=== PATIENT | female | born 1965 | race Caucasian/White ===

== ENCOUNTER 2019-05-17 21:20 | Observation (INO) | payer OTHER, SELFPAY ==
[2019-05-17 21:21] VITALS: BP 123/83; PULSE 84; RESP 15; TEMP 37.1; O2SAT 100; BMI 18.6
--- NOTE | 2019-05-17 21:55 | CT_ITS ---
STUDY: CT ABDOMEN AND PELVIS WITH CONTRAST REASON FOR EXAM: Female, 53 years old. Upper abdominal pain and elevated white count. RADIATION DOSAGE (If Supplied By Facility): CTDIvol = ( 11.64 ) mGy, DLP = ( 309.50 ) mGycm TECHNIQUE: Transaxial images were obtained from the dome of the diaphragm to the symphysis pubis with oral contrast. 100 ml of IV Isovue 300 was administered. Sagittal and coronal images were reconstructed. Individualized dose optimization techniques were used for this CT. COMPARISON: CT abdomen and pelvis dated June 01, 2016. FINDINGS: There is bilateral basal dependent atelectasis. The visualized portions of the heart are within normal limits. Normal liver. Normal gallbladder and extrahepatic biliary system. Normal spleen. Normal pancreas. Normal bilateral adrenal glands. Normal right kidney. Normal left kidney. Normal visualized stomach. There is nonspecific thickening of the buenrostro of proximal small bowel which measure up to 11.3 mm in thickness. This appears new since the previous study and suggests possible sequela of small bowel infection and/or inflammation. Stool is visible throughout the colon with relative distention of the cecum compared to rest the colon. Maximum transverse dimension of the cecum is approximately 6.8 cm. There is nonspecific thickening of the buenrostro of the distal transverse colon that may be the result of nondistention but there is an abrupt transition at the mid transverse colon. There is a tubular, thick-walled appendix (>7mm), consistent with acute appendicitis. There appears to be an appendicolith at the base of the appendix. There is diffuse atherosclerotic calcification of the distal abdominal aorta, without a demonstrated aneurysm. There is venous distention of the inferior vena cava (IVC). Normal retroperitoneum. Normal urinary bladder. Normal visualized uterus. Normal abdominal wall. There is degenerative disc disease at L4-5. CT/Abdomen/Pelvis WITH Contrast IMPRESSION: CT findings are consistent with acute appendicitis. There is no evidence to suggest perforation or abscess currently. N.B. : The above information has been verbally conveyed by Penelope Greco MD to Dawna Coburn MD, on 05/18/2019 00:12:54 (ET). Electronically Signed: Penelope Greco MD at 0:15 EST , Service support ,
--- NOTE | 2019-05-17 21:55 | EKG12_ITS ---
Test Reason : ABDOMINAL PAIN Blood Pressure : / mmHG Vent. Rate : 069 BPM Atrial Rate : 069 BPM P-R Int : 116 ms QRS Dur : 082 ms QT Int : 426 ms P-R-T Axes : 069 079 074 degrees QTc Int : 456 ms Normal sinus rhythm with sinus arrhythmia Normal ECG Confirmed by FARHAD POWERS, CHAY ([id number]), editor & co founder ALONZO BOONE ([id number] on 05/18/2019 2:54:15 PM Referred By: TAWANNA Confirmed By:CHAY LLAMAS MD
[2019-05-17] MEDS: 0.9% Normal Saline 1,000 ML 125 ML IV (22:03)
[2019-05-17] MEDS: Ondansetron 4 MG/2 ML Vial IV (22:03)
[2019-05-17] MEDS: HYDROmorphone 1 MG/ML Syringe IV ×2 (22:03→23:40)
[2019-05-17 22:16] LABS: Absolute Lymphocyte Count 1.57 X10^3/uL (0.83-4.51); Absolute Neutrophil Count 13.8 X10^3/uL (2.0-7.7); Basophil# 0.05 X10^3/uL; Basophil% 0.3 % (0-1); Eosinophils% 0.6 % (0-5); Hematocrit 39.5 % (37-47); Hemoglobin 12.9 g/dL (12.0-15.0); Lymphocyte # 1.57 X10^3/ul (4.0); Lymphocyte % 9.6 % (19-41); Mean Corp Hgb Conc 32.7 g/dL (32-36); Mean Corpuscular Hgb 30.8 pg (27.0-32.0); Mean Corpuscular Volume 94.3 fL (81-99); Mean Platelet Vol. 9.9 fl (6.2-12.0); Monocyte# 0.74 X10^3/uL; Monocyte% 4.5 % (0-10); NRBC Flagged by Analyzer 0 % (0-5); Neutrophil # 13.79 X10^3/uL (2.7-7.7); Neutrophil % 84.6 % (47-70); Platelet Count 292 K/mm3 (150-450); RBC Distribution Width CV 13.5 % (11.6-14.6); RBC Distribution Width SD 46.5 fl (35.1-43.9); Red Blood Count 4.19 M/mm3 (4.2-5.4); White Blood Count 16.3 K/mm3 (4.4-11.0)
[2019-05-17 22:33] LABS: ALB/GLOB Ratio 1.2 RATIO (0.9-2.4); AST(SGOT) 15 U/L (15-37); Alanine Aminotransfer ALT/SGPT 16 U/L (13-56); Albumin, Serum 3.8 g/dL (3.2-5.0); Alkaline Phosphatase 100 U/L (45-117); Anion Gap 8 (5-15); BUN 18 mg/dL (7-18); BUN/Creat Ratio 23.2 RATIO (10-20); Chloride 106 mmol/L (98-107); Creatinine, Serum 0.78 mg/dL (0.55-1.02); EST Glomerular Filtration Rate 82 mL/min (>60); Est Glom Filt Rate - Afr Amer 100 mL/min (>60); Estimated Creatinine Clearance 66.89 ml/min; Globulin 3.1 g/dL (2.2-4.2); Glucose 120 mg/dL (74-106); Lipase 97 U/L (73-393); Protein, Total 6.9 g/dL (6.4-8.2); Sodium Level 138 mmol/L (136-145)
[2019-05-17 22:46] LABS: Internal QC Validated? YES +Cl - CLEAR BKGD; Pregnancy, Serum, hCG Quali. NEGATIVE Negative
[2019-05-17 23:03] VITALS: BP 112/77; PULSE 76; RESP 16
[2019-05-17 23:14] LABS: Bacteria 0 SEEN /hpf (None Seen); Mucous, Urine 0 SEEN /hpf (<or=2+)
[2019-05-17 23:15] LABS: Color, Urine Yellow (Yellow); Glucose, Dipstick Normal (Normal); Ketone-Dipstick 50 mg/dl (Negative); Leukocyte Esterase-Dipstick 25 /ul (Negative); Nitrite-Dipstick Negative (Negative); Occult Blood-Urine 10 /ul (Negative); Protein-Dipstick Negative (Negative); Urine Bilirubin Dipstick Negative (Negative); Urine Clarity Clear (Clear); Urine Urobilinogen Normal (Normal)
[2019-05-17 23:20] LABS: Red Blood Cells-Urine 0-5 SEEN /hpf (0-5); Squamous Epithelial Cells - UA 0-5 SEEN /hpf (5-10); White Blood Cells 0-5 SEEN /hpf (0-5)
[2019-05-18] VITALS (12 sets, daily range): BP systolic 84–124; BP diastolic 49–81; PULSE 68–97; RESP 15–18; TEMP 36.6–37.2; O2SAT 94–100; BMI 18.6; BMI 18.8
--- NOTE | 2019-05-18 00:06 | ED.VISSUMM ---
- ER Visit Summary Date of Service: 05/18/19 Chief Complaint: [Abdominal pain] History of Present Illness: The patient is a 53 F [presents to the emergency department with complaint of abdominal pain that started 4 5 hours ago. Patient states that she just got back from [place]. Patient states that she had a sensation like she needed to may be just have a bowel movement and eventually she did however her discomfort and not resolve. Patient complains of pain in the upper and lower abdomen somewhat diffusely. She describes it as cramping and now rates it as severe. Patient rates it as an 8 out of 10. She is had nausea and vomiting x2. She denies any diarrhea. Patient had a colonoscopy on April 16 that was normal. Patient has no medical history. She has had no prior surgical history. Denies urinary symptoms.] Physical Examination: [HEENT-PERRLA, EOMI. Cranial nerves II through XII grossly intact. TMs clear. Mucous membranes moist. No adenopathy. Cardiovascular-regular rate and rhythm without murmur or ectopy Lungs-clear to auscultation, chest wall stable without crepitus or subcu emphysema Abdomen-normoactive bowel sounds, soft. Patient has tenderness palpation over right lower quadrant with some guarding. Patient also has tenderness in the epigastric region with some guarding. There is no rebound, rigidity, or perineal signs. Extremities-intact ?4, normal range of motion, normal pulses, atraumatic] Test Results: [CBC with differential obtained showed an elevated white count 16.3, hemoglobin 12.9, hematocrit 40, placed 292. Chemistries unremarkable. Urinalysis normal. hCG was negative. Liver enzymes were normal. Lipase was normal. CT scan of the abdomen pelvis with IV and p.o. contrast ordered and on my interpretation as well as the surgeons believe she has acute appendicitis. Official report from radiology pending.] Emergency Department Course and Treatment: [Patient was given Dilaudid and Zofran for pain. Patient had to be remedicated with Dilaudid for continued pain. Patient was started on Zosyn 4.5 g IV.] Treatment Plan: [Admit to general surgery for operative intervention of suspected acute appendicitis] Disposition: [Admit] Impression: [Abdominal pain Appendicitis] This note was generated with [employer] software. It may contain incorrect words, spelling, and punctuation that were not noted in review of the chart prior to signing
--- NOTE | 2019-05-18 00:09 | HP.PCM_ITS ---
Problem List (1) Acute appendicitis Status: Acute Qualifiers: Acute appendicitis type: with generalized peritonitis Appendicitis gangrene presence: unspecified whether gangrene present Appendicitis perforation presence: unspecified whether perforation present Appendicitis abscess presence: without abscess Qualified Code(s): K35.20 - Acute appendicitis with generalized peritonitis, without abscess History of Present Illness Date of Admission: 05/18/19 The patient is a 53 year old F who presented to the emergency department with 4 to 5-hour history of gradual onset of generalized abdominal pain with nausea or vomiting.'s been continuous and increasing in nature she states that since she has been in the emergency department it is localized to the right lower quadrant. She has a white count of 16,000. CAT scan of the abdomen by my reading shows acute appendicitis with an appendicolith as well as the duodenum being slightly thickened. She has been complaining of subjective fever and chills. Had a bowel movement at about 5 PM which showed no blood. Past Medical History Allergies No Known Allergies Allergy (Verified 05/17/19 21:23) Home Medications: Ambulatory Orders Medication Instructions Recorded Oxycodone [Oxyir] 5 mg PO Q6H PRN PRN 4 Days #12 tab 05/19/19 Surgical History: - - Patient has had a , tonsillectomy, and a colonoscopy. Smoking Status: Current every day smoker - *Family History Maternal History Items: No pertinent history Review of Systems Constitutional: Reports: Chills, Fever Eyes: Denies: Blurred vision, Pain, Redness, Vision Change HEENT: Denies: Dysphasia, Ear Pain, Eye Pain, Head Aches, Hearing Changes, Sore Throat Cardiovascular: Denies: Chest Pain, Chest Pressure, Chest Tightness, Palpitations Respiratory: Denies: Cough, Hemoptysis, Shortness of breath at rest, Shortness of breath upon exertion, Wheezing Gastrointestinal: Reports: Abdominal Pain, Nausea, Vomiting Genitourinary: Denies: Dysuria, Frequency, Hematuria, Urgency Musculoskeletal: Denies: Joint Pain Skin: Denies: Lesions, Rash, Wounds Neurological: Denies: Change in Speech, Confusion, Numbness, Tingling, Seizures VTE Information - Inpt Only VTE Present on Admission: No VTE Mechan Device Prophylaxis: SCD's VTE Pharm Prophylaxis ordered?: No Reason prophylaxis not ordered:: Treatment Not Indicated - Physical Exam Vitals/I&O's: Vital Signs Temp Pulse Resp BP Pulse Ox 98.8 F 76 16 112/77 100 05/17/19 21:21 05/17/19 23:03 05/17/19 23:03 05/17/19 23:03 05/17/19 21:21 Oxygen Delivery Method Room Air Weight: 111 lb 15.917 oz Body Mass Index (BMI) 18.6 General: Alert, Oriented x3 HEENT: Atraumatic, PERRLA, EOMI, Normocephalic Oral: Moist Mucosa Neck: Supple, No JVD Lungs: Clear to auscultation Cardiovascular: Regular rate, Regular Rhythm, No murmurs Abdomen: Soft, Tender - Patient has localized tenderness in the right lower quadrant with guarding she has peritoneal irritation identified. Extremities: No clubbing, No cyanosis, No edema Skin: No rashes, No breakdown Laboratory Results 05/17/19 21:05: WBC 16.3 H, RBC 4.19 L, Hgb 12.9, Hct 39.5, MCV 94.3, MCH 30.8, MCHC 32.7, RDW Std Deviation 46.5 H, RDW Coeff of Maged 13.5, Plt Count 292, MPV 9.9, Immature Gran % (Auto) 0.400, Neut % (Auto) 84.6 H, Lymph % (Auto) 9.6 L, [place] % (Auto) 4.5, Eos % (Auto) 0.6, Baso % (Auto) 0.3, Absolute Neuts (auto) 13.8 H, Absolute Lymphs (auto) 1.57, Nucleated RBC % 0 05/17/19 21:05: Sodium 138, Potassium 4.0, Chloride 106, Carbon Dioxide 24.0, Anion Gap 8, BUN 18, Creatinine 0.78, Estim Creat Clear Calc 66.89, Est GFR (MDRD) Af Amer 100, Est GFR (MDRD) Non-Af 82, BUN/Creatinine Ratio 23.2 H, Glucose 120 H, Calcium 9.0, Total Bilirubin 0.30, AST 15, ALT 16, Alkaline Phosphatase 100, Troponin I < 0.015, Total Protein 6.9, Albumin 3.8, Globulin 3.1, Albumin/Globulin Ratio 1.2, Lipase 97 05/17/19 21:05: Serum , Qual NEGATIVE 05/17/19 23:05: Urine Color Yellow, Urine Clarity Clear, Urine pH 5.0, Ur Specific [place] 1.020, Urine Protein Negative, Urine Glucose (UA) Normal, Urine Ketones 50 H, Urine Occult Blood 10 H, Urine Nitrite Negative, Urine Bilirubin Negative, Urine Urobilinogen Normal, Ur Leukocyte Esterase 25 H, Urine RBC 0-5 SEEN, Urine WBC 0-5 SEEN, Ur Squamous Epith Cells 0-5 SEEN, Urine Bacteria 0 SEEN, Urine Mucus 0 SEEN Current Medications Sodium Chloride () 1,000 mls @ 125 mls/hr IV .Q8H NURY Last Admin: 05/17/19 22:03 Dose: 125 mls/hr Documented by: Piperacillin Sod/Tazobactam (Sod 4.5 gm/ Sodium Chloride) 100 mls @ 200 mls/hr IV X1 ONE Stop: 05/18/19 00:35 Assessment/Plan All Active Problems Acute appendicitis (Acute) Plan will be to perform a laparoscopic appendectomy. Risk benefits to the procedure have been reviewed in detail. I have included bleeding possible needing of a drain possible needing further surgical intervention secondary to recurrent abscesses. She also understands the risk of surgery to include blood clots heart attacks pneumonias and strokes. All questions asked were answered and she is willing to proceed.
--- NOTE | 2019-05-18 01:00 | APP_PTH ---
PATIENT: JAN FRY LOC: MS3 U#:[id number] AGE/SX: 53/F ROOM: MS313 RE05/18/[address]: Dr. Khai Foreman MD : [id number] BED: 1 DIS: 05/19/2019 SPEC #: [id number] RECD: 05/18/19 10:53 STATUS: FADY REXavier #: [id number] DHEERAJ: 05/18/19 01:[address]: Khai Foreman DEPT: SURGICAL PATHOLOGY RECD BY: Chaz Tobias ENTERED: 05/18/19 11:33 SP TYPE: APPENDIX OTHR DR: Shea Penaloza, SUPERVISOR [employer]CR[employer] PREPARATION-C Tissues: Appendix, NOS Procedures: Surgery Specimen Level III HEADER OPERATION: Laparoscopic appendectomy PRE-OP DIAGNOSIS: Acute appendicitis TISSUE SUBMITTED: Appendix MICROSCOPIC DIAGNOSIS Appendix, appendectomy: Acute appendicitis and periappendicitis. SJ:nir 05/19/19 MICROSCOPIC DESCRIPTION Slides are reviewed. GROSS DESCRIPTION Received is one container labeled with the patient's name and designated appendix. The specimen consists of an appendix measuring 6.5 cm in length and up to 1.5 cm in diameter. The attached periappendiceal adipose tissue measures up to 1 cm in width. The serosa is congested. No obvious perforation is identified. The lumen is filled with fecal material. No fecalith is identified. Fire Sprinkler Inspector sections are submitted in one cassette. / SJ:nir 05/18/19 TC:2 CPT: 01579
[2019-05-18] MEDS: Bupivacaine Mpf 0.5% 30 ML VIAL (02:04)
--- NOTE | 2019-05-18 02:04 | OP.PCM_ITS ---
Problem List (1) Acute appendicitis Status: Acute Qualifiers: Acute appendicitis type: with generalized peritonitis Appendicitis gangrene presence: unspecified whether gangrene present Appendicitis perforation presence: unspecified whether perforation present Appendicitis abscess presence: without abscess Qualified Code(s): K35.20 - Acute appendicitis with generalized peritonitis, without abscess Report of Operation Date of Procedure: 05/18/19 Pre-Operative Diagnosis: Acute appendicitis Post-Operative Diagnosis: Same Surgery/Procedure Performed:: Laparoscopic appendectomy Type of Anesthesia:: General Anesthesiologist: Jono Dean Specimen's removed: Appendix Estimated Blood Loss (mL): < 25 cc Fluids Replaced: 1 l lr Description of Procedure: Patient was brought in the operating room placed in the supine position. Under excellent general trach intubation the abdomen was sterilely prepped and draped in usual fashion. Local was injected infraumbilically. A curvilinear incision was made. Fascia was grasped with a [place]. Varies needle was placed inside the abdomen. The abdomen was insufflated to 15 torr. A 10/12 trocar was placed. Suprapubic #5 trocar was placed. The left lower quadrant #5 trocar was placed. Both of these under direct visualization without injury to underlying structures. Patient had some omental adhesions to the anterior abdominal wall which were taken down with the Enseal with good hemostasis. The patient was placed in the head down rotated to the left position. Patient was noted to have acute appendicitis. I took down the mesoappendix with the Enseal. I had good hemostasis. I transected the base of the appendix with a 45 linear cutter. I had good hemostasis. Placed a specimen in a bag and brought through the umbilical port. Reinflated the abdomen I ran the small bowel no Meckel's diverticulum was identified. I inspected the duodenum I did not see any signs of perforation the gallbladder looked normal. There was no fluid in the pelvis. Trochars were removed under direct visualization. Fascia was closed with a [id number] stitch of 0 Vicryl. Skin incisions were closed with 4-0 Monocryl. Steri-Strips were applied sterile dressings were applied and the patient tolerated the procedure well. - Admit VTE Documentation VTE Present on Admission: No VTE Mechan Device Prophylaxis: SCD's VTE Pharm Prophylaxis ordered?: No Reason prophylaxis not ordered:: Treatment Not Indicated
[2019-05-18] MEDS: oxyCODONE 5 MG Tablet PO ×5 (03:18→23:50)
[2019-05-18] MEDS: 0.9% Normal Saline 1,000 ML 75 ML IV ×2 (03:18→18:54)
[2019-05-18 08:05] LABS: Absolute Neutrophil Count 9.9 X10^3/uL (2.0-7.7); Basophil# 0.05 X10^3/uL; Basophil% 0.4 % (0-1); Eosinophil# 0.14 X10^3/uL; Hemoglobin 10.9 g/dL (12.0-15.0); Lymphocyte % 19.8 % (19-41); Mean Corp Hgb Conc 32.1 g/dL (32-36); Mean Corpuscular Hgb 31.1 pg (27.0-32.0); Mean Corpuscular Volume 96.9 fL (81-99); Mean Platelet Vol. 9.8 fl (6.2-12.0); Monocyte# 0.85 X10^3/uL; Monocyte% 6.2 % (0-10); NRBC Flagged by Analyzer 0 % (0-5); Neutrophil # 9.87 X10^3/uL (2.7-7.7); Neutrophil % 72.2 % (47-70); Platelet Count 237 K/mm3 (150-450); RBC Distribution Width CV 13.7 % (11.6-14.6); RBC Distribution Width SD 48.6 fl (35.1-43.9); Red Blood Count 3.51 M/mm3 (4.2-5.4); White Blood Count 13.7 K/mm3 (4.4-11.0)
[2019-05-18 08:14] LABS: Anion Gap 5 (5-15); BUN 12 mg/dL (7-18); BUN/Creat Ratio 19.9 RATIO (10-20); Chloride 111 mmol/L (98-107); EST Glomerular Filtration Rate 110 mL/min (>60); Est Glom Filt Rate - Afr Amer 133 mL/min (>60); Estimated Creatinine Clearance 87.82 ml/min; Glucose 72 mg/dL (74-106); Potassium 3.9 mmol/L (3.5-5.1); Sodium Level 142 mmol/L (136-145)
[2019-05-18] MEDS: Ibuprofen 400 MG Tablet 800 MG PO (08:46)
[2019-05-18] MEDS: 0.9% Normal Saline 1,000 ML 999 ML IV (09:44)
--- NOTE | 2019-05-18 10:52 | PCM.PN.BLA ---
Progress Note Evaluated patient. She notes very tender all over. She denies nausea, vomiting. She is tolerating a diet well. Her blood pressure seems to be running low. Incisions c/d/i. No erythema or infection noted. Patient will likely not be discharge today. STROKE Vital Signs/Narrative: Vital Signs Temp Pulse Resp BP BP Pulse Ox 05/18/19 10:46 69 97/57 L 97 05/18/19 08:37 98.6 F 70 16 87/49 L 97
[2019-05-18] MEDS: traMADol 50 MG Tablet PO (11:27)
[2019-05-18] MEDS: Acetaminophen 325 MG Tablet 650 MG PO ×2 (11:27→18:54)
[2019-05-19 02:50] VITALS: BP 98/55; PULSE 65; RESP 18; TEMP 37.2; O2SAT 95
[2019-05-19] MEDS: Ibuprofen 400 MG Tablet 800 MG PO (02:57)
[2019-05-19] MEDS: oxyCODONE 5 MG Tablet PO (05:02)
[2019-05-19 06:54] LABS: Hematocrit 31.9 % (37-47); Hemoglobin 9.9 g/dL (12.0-15.0); Mean Corpuscular Hgb 30.7 pg (27.0-32.0); Mean Corpuscular Volume 99.1 fL (81-99); Mean Platelet Vol. 10.6 fl (6.2-12.0); Platelet Count 225 K/mm3 (150-450); RBC Distribution Width CV 14.2 % (11.6-14.6); RBC Distribution Width SD 51.4 fl (35.1-43.9); Red Blood Count 3.22 M/mm3 (4.2-5.4); White Blood Count 7.5 K/mm3 (4.4-11.0)
--- NOTE | 2019-05-19 07:27 | PCM.PN.SRG ---
Patient Problems: Active and Suspected Problems Acute appendicitis (Acute) Subjective: Patient evaluated resting comfortably in bed. Patient denies nausea, vomiting, fever. She notes abdominal pain is greatly improved. - Physical Exam Vitals/I&O's: Vital Signs Temp Pulse Resp BP Pulse Ox 98.9 F 65 18 98/55 L 95 05/19/19 02:50 05/19/19 02:50 05/19/19 02:50 05/19/19 02:50 05/19/19 02:50 Oxygen Delivery Method Room Air Weight: 113 lb 1.554 oz Body Mass Index (BMI) 18.8 Intake and Output for Last 24 Hours 05/17/19 05/18/19 05/19/19 23:59 23:59 23:59 Intake Total 3265.0 / 3865.0 1010 / 1010 Output Total 2450 / 2450 Balance 815.0 / 1415.0 1010 / 1010 General: Alert, Oriented x3, Cooperative Abdomen: Bowel Sounds Present, Soft, Tender - generalized, - - Incisions c/d/i. No erythema or infection noted Laboratory Results 05/18/19 07:52: WBC 13.7 H, RBC 3.51 L, Hgb 10.9 L, Hct 34.0 L, MCV 96.9, MCH 31.1, MCHC 32.1, RDW Std Deviation 48.6 H, RDW Coeff of Maged 13.7, Plt Count 237, MPV 9.8, Immature Gran % (Auto) 0.400, Neut % (Auto) 72.2 H, Lymph % (Auto) 19.8, [place] % (Auto) 6.2, Eos % (Auto) 1.0, Baso % (Auto) 0.4, Absolute Neuts (auto) 9.9 H, Absolute Lymphs (auto) 2.70, Nucleated RBC % 0 05/18/19 07:52: Sodium 142, Potassium 3.9, Chloride 111 H, Carbon Dioxide 26.0, Anion Gap 5, BUN 12, Creatinine 0.60, Estim Creat Clear Calc 87.82, Est GFR (MDRD) Af Amer 133, Est GFR (MDRD) Non-Af 110, BUN/Creatinine Ratio 19.9, Glucose 72 L, Calcium 8.0 L 05/19/19 05:40: WBC 7.5, RBC 3.22 L, Hgb 9.9 L, Hct 31.9 L, MCV 99.1 H, MCH 30.7, MCHC 31.0 L, RDW Std Deviation 51.4 H, RDW Coeff of Maged 14.2, Plt Count 225, MPV 10.6 Current Medications Acetaminophen (Tylenol) 650 mg PO Q6H PRN PRN PRN Reason: pain Last Admin: 05/18/19 18:54 Dose: 650 mg Documented by: Hydromorphone HCl (Dilaudid Inj) 1 - 2 mg IV Q2H PRN PRN PRN Reason: Pain Score 6-10/10 Sodium Chloride () 1,000 mls @ 75 mls/hr IV .[id number] NURY Last Admin: 05/18/19 18:54 Dose: 75 mls/hr Documented by: Piperacillin Sod/Tazobactam (Sod 3.375 gm/ Sodium Chloride) 50 mls @ 12.5 mls/hr IV Q8 NURY Last Admin: 05/19/19 05:20 Dose: 12.5 mls/hr Documented by: Sodium Chloride () 250 mls @ 15 mls/hr IV .[id number] PRN PRN Reason: Saline Flush Last Infusion: 05/18/19 14:10 Dose: 0 mls/hr Documented by: Ibuprofen (Motrin) 800 mg PO BID PRN PRN PRN Reason: Pain 1-10/Inflammation Last Admin: 05/19/19 02:57 Dose: 800 mg Documented by: Ondansetron HCl (Zofran) 4 mg IV Q8H PRN PRN PRN Reason: Nausea Oxycodone HCl (Oxyir) 5 - 10 mg PO Q4H PRN PRN PRN Reason: Pain Score 1-10/10 Last Admin: 05/19/19 05:02 Dose: 10 mg Documented by: Sodium Chloride () 10 - 40 ml IV UD PRN PRN Reason: SALINE FLUSH Tramadol HCl (Ultram) 50 mg PO Q6H PRN PRN PRN Reason: Pain Score 6-10/10 Last Admin: 05/18/19 11:27 Dose: 50 mg Documented by: Medical Necessity - Tobacco Use Smoking Status: Current every day smoker Tobacco Use: Cigarettes Assessment/Plan All Active Problems Acute appendicitis (Acute) I am following this patient in conjunction with Dr. Foreman S/p laparoscopic appendectomy Ready for discharge
--- NOTE | 2019-05-19 07:35 | DCINST_ITS ---
Discharge Diet: Light diet - advance as tolerated Discharge Activity: May Not Drive - for 3 days or while taking narcotic pain meds. May shower in (days): 1 Call your doctor if your incision/area has: Continuous Slow Oozing, Sudden Increased Bleeding, Increased Pain/ Swelling, Increased Redness, Foul Smelling Discharge Call your doctor if you observe: Fever of 101 or Higher Suture Line Care: Avoid Pulling/Pushing, Avoid Pinching/Bending Cleanse incision/area with: Soap & Water Additional Dressing/Incision Instructions:: Keep dressing clean and dry. Change or remove dressing in 2 days. Leave steri strips for 1 week. May protect with a gauze bandaid. Medications to take at Discharge Oxycodone [Oxyir] 5 mg PO Q6H PRN PRN 4 Days #12 tablet 05/19/19 Allergies/Adverse Reactions: Allergies No Known Allergies Allergy (Verified 05/17/19 21:23) The following prescriptions were given: Oxycodone [Oxyir] 5 mg PO Q6H PRN PRN 4 Days #12 tablet PRN Reason: Pain Score 1-10/10 Transmission Status: Sent to [facility] Primary Care Physician: Shea Penaloza NP-C [Primary Care Provider] - Test Results: Test results from this visit will be discussed in further detail at your follow- up appointment, if applicable. Please Follow Up With: Kaleigh Escalona PA-C - [phone] When: 7-10 days Proposed Discharge Date: 05/19/19
--- NOTE | 2019-05-19 07:37 | DS.PCM_ITS ---
Discharge Date and Diagnosis - Problem List Patient Problems: Active and Suspected Problems Acute appendicitis (Acute) Date of Admission: 05/17/19 Date of Discharge: 05/19/19 - Primary Discharge Diagnosis Active and Suspected Problems Acute appendicitis (Acute) Hospital Course and Treatment Operations: appendectomy Summary of Care Provided: The patient is a 53 year old F who presented with a 5 day history of abdominal pain. CT scan of the abdomen/pelvis confirmed acute appendicitis. Dr. Foreman performed a laparoscopic appendectomy. Patient tolerated the procedure well. Patient had an uncomplicated hospitalization. Upon discharge, patient notes minimal amount of incisional pain. She denies nausea, vomiting, fever. Her blood pressure is stable. Patient Problems: Active and Suspected Problems Acute appendicitis (Acute) - Physical Exam Vitals/I&O's: Vital Signs Temp Pulse Resp BP Pulse Ox 98.9 F 65 18 98/55 L 95 05/19/19 02:50 05/19/19 02:50 05/19/19 02:50 05/19/19 02:50 05/19/19 02:50 Oxygen Delivery Method Room Air Weight: 113 lb 1.554 oz Body Mass Index (BMI) 18.8 Intake and Output for Last 24 Hours 05/17/19 05/18/19 05/19/19 23:59 23:59 23:59 Intake Total 3265.0 / 3865.0 1010 / 1010 Output Total 2450 / 2450 Balance 815.0 / 1415.0 1010 / 1010 General: Alert, Oriented x3, Cooperative Abdomen: Bowel Sounds Present, Soft, Tender, - - Incisions c/d/i. No erythema or infection noted. Laboratory Results 05/18/19 07:52: WBC 13.7 H, RBC 3.51 L, Hgb 10.9 L, Hct 34.0 L, MCV 96.9, MCH 31.1, MCHC 32.1, RDW Std Deviation 48.6 H, RDW Coeff of Maged 13.7, Plt Count 237, MPV 9.8, Immature Gran % (Auto) 0.400, Neut % (Auto) 72.2 H, Lymph % (Auto) 19.8, [place] % (Auto) 6.2, Eos % (Auto) 1.0, Baso % (Auto) 0.4, Absolute Neuts (auto) 9.9 H, Absolute Lymphs (auto) 2.70, Nucleated RBC % 0 05/18/19 07:52: Sodium 142, Potassium 3.9, Chloride 111 H, Carbon Dioxide 26.0, Anion Gap 5, BUN 12, Creatinine 0.60, Estim Creat Clear Calc 87.82, Est GFR (MDRD) Af Amer 133, Est GFR (MDRD) Non-Af 110, BUN/Creatinine Ratio 19.9, Glucose 72 L, Calcium 8.0 L 05/19/19 05:40: WBC 7.5, RBC 3.22 L, Hgb 9.9 L, Hct 31.9 L, MCV 99.1 H, MCH 30.7, MCHC 31.0 L, RDW Std Deviation 51.4 H, RDW Coeff of Maged 14.2, Plt Count 225, MPV 10.6 Current Medications Acetaminophen (Tylenol) 650 mg PO Q6H PRN PRN PRN Reason: pain Last Admin: 05/18/19 18:54 Dose: 650 mg Documented by: Hydromorphone HCl (Dilaudid Inj) 1 - 2 mg IV Q2H PRN PRN PRN Reason: Pain Score 6-10/10 Sodium Chloride () 1,000 mls @ 75 mls/hr IV .[id number] [facility] Last Admin: 05/18/19 18:54 Dose: 75 mls/hr Documented by: Piperacillin Sod/Tazobactam (Sod 3.375 gm/ Sodium Chloride) 50 mls @ 12.5 mls/hr IV Q8 NURY Last Admin: 05/19/19 05:20 Dose: 12.5 mls/hr Documented by: Sodium Chloride () 250 mls @ 15 mls/hr IV .[id number] PRN PRN Reason: Saline Flush Last Infusion: 05/18/19 14:10 Dose: 0 mls/hr Documented by: Ibuprofen (Motrin) 800 mg PO BID PRN PRN PRN Reason: Pain 1-10/Inflammation Last Admin: 05/19/19 02:57 Dose: 800 mg Documented by: Ondansetron HCl (Zofran) 4 mg IV Q8H PRN PRN PRN Reason: Nausea Oxycodone HCl (Oxyir) 5 - 10 mg PO Q4H PRN PRN PRN Reason: Pain Score 1-10/10 Last Admin: 05/19/19 05:02 Dose: 10 mg Documented by: Sodium Chloride () 10 - 40 ml IV UD PRN PRN Reason: SALINE FLUSH Tramadol HCl (Ultram) 50 mg PO Q6H PRN PRN PRN Reason: Pain Score 6-1010 Last Admin: 05/18/19 11:27 Dose: 50 mg Documented by: Discharge Diet: Light diet - advance as tolerated Discharge Activity: May Not Drive - for 3 days or while taking narcotic pain meds. May shower in (days): 1 Call your doctor if your incision/area has: Continuous Slow Oozing, Sudden Increased Bleeding, Increased Pain/ Swelling, Increased Redness, Foul Smelling Discharge Call your doctor if you observe: Fever of 101 or Higher Suture Line Care: Avoid Pulling/Pushing, Avoid Pinching/Bending Cleanse incision/area with: Soap & Water Additional Dressing/Incision Instructions:: Keep dressing clean and dry. Change or remove dressing in 2 days. Leave steri strips for 1 week. May protect with a gauze bandaid. Home Medications: Medications to take at Discharge Oxycodone [Oxyir] 5 mg PO Q6H PRN PRN 4 Days #12 tablet 05/19/19 Following Prescrptions Were Given to Patient: Oxycodone [Oxyir] 5 mg PO Q6H PRN PRN 4 Days #12 tablet PRN Reason: Pain Score 1-1010 Transmission Status: Sent to [facility] Primary Care Physician: Shea Penaloza NP-C [Primary Care Provider] - Please Follow Up With: Kaleigh Escalona PA-C - [phone] When: 7-10 days Disposition: Home Patient Condition:: Stable Medical Necessity - Tobacco Use Smoking Status: Current every day smoker Tobacco Use: Cigarettes Meaningful Use Info Meaningful Use Diagnoses (Choose all that apply): None applicable
[2019-05-19 08:28] VITALS: BP 102/55; PULSE 78; RESP 18; TEMP 37.1; O2SAT 94
[2019-05-19] MEDS: Acetaminophen 325 MG Tablet 650 MG PO (08:33)
[2019-05-19] MEDS: traMADol 50 MG Tablet PO (08:34)
== END 2019-05-19 08:52 | disposition home or self-care (01) ==
LOC: ED 22:11 → SDC 05-18 00:01 → MS3 05-18 02:30 → SDC 05-18 14:10
PROVIDERS: Physician Assistant; Admitting Provider Surgery; Emergency Provider Emergency Medicine; Family Provider Nurse Practitioner Family; PCP Nurse Practitioner Family; Visit Provider Surgery
PROC: 0DTJ4ZZ Resection of Appendix, Percutaneous Endoscopic Approach (ICD-10-PCS; CPT 44970; principal; 2019-05-18 01:00)
DX: K35.20 Acute appendicitis with generalized peritonitis, without abscess (principal); F17.210 Nicotine dependence, cigarettes, uncomplicated
CPT/HCPCS: 00840; 44970; 36415; 74177; 80048; 80053; 81001; 83690; 84484; 84703; 85025; 85027; 88304; 93005; 96361; 96365; 96366; 96375; 96376; 99218; 99251; 99284; 99406; J7030; J7050; Q9967; A4216; C1760; G0378; G0463; J2405

== ENCOUNTER 2019-12-14 07:00 | Day surgery (SDC) | payer OTHER, SELFPAY ==
[2019-08-03 13:40] VITALS: BMI 18.6
[2019-12-14] VITALS (7 sets, daily range): BP systolic 94–110; BP diastolic 60–80; PULSE 77–91; RESP 16; TEMP 36.2–37.2; O2SAT 97–99; BMI 16.9
--- NOTE | 2019-12-14 | GASB_PTH ---
PATIENT: JAN FRY LOC: EN U#:[id number] AGE/SX: 54/F ROOM: RE12/14/[address]: Dr. Khai Foreman MD : 1965 BED: DIS: 12/14/2019 SPEC #: [id number] RECD: 12/14/19 10:45 STATUS: FAYD JEY #: [id number] DHEERAJ: 12/14/19 00:[address]: Khai Foreman DEPT: SURGICAL PATHOLOGY RECD BY: Gallito Patel ENTERED: 12/14/19 10:45 SP TYPE: Gastric Bx OTHR DR: Shea Penaloza, LAB COURIER-C Tissues: A - Gastric mucous membrane B - Gastric mucous membrane Procedures: Surgery Specimen Level IV HEADER OPERATION: EGD ([facility]) PRE-OP DIAGNOSIS: Abnormal CT scan TISSUE SUBMITTED: A - Gastric biopsy, B - Antrum biopsy for histo and H. pylori MICROSCOPIC DIAGNOSIS A. Gastric mucosa, biopsy: Fragments of benign gastric tissue. B. Gastric antrum, biopsy: Mild chronic gastritis. See comment. AM:nir 12/15/19 COMMENT B. The results of immunohistochemistry for Helicobacter pylori will be reported separately ([id number]). MICROSCOPIC DESCRIPTION Slides are reviewed. GROSS DESCRIPTION A - Received in fixative is one container labeled with the patient's name and designated gastric biopsy. The specimen consists of one irregular fragment of light roberts soft tissue that measures 0.2 x 0.2 x 0.1 cm. The specimen is totally submitted in one cassette. B - Received in fixative is one container labeled with the patient's name and designated antrum biopsy. The specimen consists of one irregular fragment of light roberts soft tissue that measures 0.3 x 0.2 x 0.1 cm. The specimen is totally submitted in one cassette. / SJ:inr 12/14/19 TC:3 CPT: 45791 x2
[2019-12-14] MEDS: Lactated Ringers 1,000 ML 100 ML IV (07:29)
--- NOTE | 2019-12-14 08:15 | IMM_PTH ---
PATIENT: JAN FRY LOC: EN U#:[id number] AGE/SX: 54/F ROOM: RE12/14/[address]: Dr. Khai Foreman MD : 1965 BED: DIS: 12/14/2019 SPEC #: [id number] RECD: 12/14/19 11:16 STATUS: FADY REXavier #: [id number] DHEERAJ: 12/14/19 08:[address]: Khai Foreman DEPT: IMMUNOHISTOCHEMISTRY RECD BY: Nelia Galan ENTERED: 12/14/19 11:16 SP TYPE: IMMUNO OTHR DR: Shea Penaloza, TICKET SELLER-C Tissues: B - Stomach, NOS Procedures: H Pylori (initial) PHYSICIAN & INSTITUTION [place] [address] SPECIMEN INFORMATION: Tissue Source: B - Antrum biopsy Clinical Info: Abnormal CT scan Specimen Number: [id number] CPT code: 41595 METHODOLOGY: Deparaffinized sections of prefer/formalin-fixed tissue or PAP/DQ stained slides are incubated with monoclonal/polyclonal antibodies/oligonucleotide probes. Localization is made via biotin free immunoperoxidase method. Appropriate controls are performed and reacted as expected. Results on target cell population are indicated in the following table: RESULTS: ANTIBODY / CLONE RESULT Block B H Pylori (polyclonal) negative These tests were developed and their performance characteristics determined by [facility]. They may not have been cleared or approved by the U.S. Food and Drug Administration. The FDA has determined that such clearance or approval is not necessary. INTERPRETATION: B. Antrum biopsy: Negative for Helicobacter pylori organisms. AM:nir 12/16/19
--- NOTE | 2019-12-14 08:18 | HP.PCM_ITS ---
History and Physical Date of Admission: 12/14/19 [facility] [address] [place] [address] Date of Service: 12/14/19 MR#: [id number] Acct: [id number] Name: JAN KOEHLER Rep #: [id number] : 1965 Provider: Khai sharma MD Age/Sex: 53/F Location: [facility] Status: Signed Intake Vital Signs 08/03/19 BMI 18.6 08/03/19 Height 5 ft 4 in 08/03/19 Weight: 108 lb 08/03/19 BMI 18.5 08/03/19 BP 106/73 08/03/19 Blood Pressure Location Rt brachial 08/03/19 Position Sitting 08/03/19 Respiration 18 08/03/19 Pulse 78 08/03/19 Pulse Source Monitor 08/03/19 Temp 97.8 F 08/03/19 Temp Source Oral 08/03/19 Pulse Oximetry (%) 100 08/03/19 Oxygen Delivery Method room air Intake Visit Reasons: Discuss Upper Scope Chief Complaint: Schedule EGD Manager Area Required: No Is patient in pain?: No Allergies No Known Allergies Allergy (Verified 08/03/19 13:38) Medications NK 08/03/19 [History Confirmed 08/03/19] [facility] Medical History Acute appendicitis (Acute) Surgical History History of laparoscopic appendectomy (Acute ~05/18/19) Family History Mother Arthritis Diabetes Hypertension Father Heart disease High cholesterol Sister lupus/autoimmune disease Social History (Updated 08/03/19 @ 13:51 by Khai Foreman MD) Smoking Status: Current every day smoker alcohol intake: never substance use type: does not use HPI HPI Surgical H&P: Yes HPI: JAN KOEHLER, is a 53 F who presents to the office today for Evaluation for endoscopy. I performed a laparoscopic appendectomy on her on 05/18/2019. CAT scan noticed that she had some thickening of the duodenum patient is noted to have some occasional reflux disease notes that her job is stressful. Pathology report at the time of her appendicitis was just a normal acute appendicitis. ROS General General: Yes weight change and appetite; no fatigue, colon cancer, breast cancer or weakness HEENT HEENT: No difficulty swallowing, eye injury, eye surgery, swollen glands or hoarseness Endo Endocrine: No thyroid disease, diabetes mellitus, thyroid cancer, Hair loss, heat intolerance or cold intolerance Skin Skin: No rash or changing moles Breast Breast: No left breast lump, right breast lump, nipple discharge, breast pain, abnormal mammogram, abnormal US or breast enlargement Musc Musculoskeletal: Yes back problems and arthritis; no rheumatoid arthritis, gout or joint pain Cardio Cardiovascular: No murmur, pacemaker, heart disease, atrial fibrillation, high blood pressure, heart attack, heart stent, palpitations, shortness of breat with exertion or chest pain Psych Psychiatric: No depression, anxiety or hearing voices Resp Respiratory: No shortness of breath, No sleep apnea, No cough, No COPD, No asthma, No emphysema, No wheezing Gastro Gastrointestinal: No abdominal pain, No nausea or vomiting, No diarrhea, No constipation, No blood in stool, No acid reflux, Yes hemorrhoids, No ulcers, No gallbladder problem, No black,tarry stools Navin Hematologic: No blood thinners, No blood disorders, No bleeding, Yes anemia, No blood clots Neuro Neurologic: No system reviewed and no additional complaints, except as docu, No as per HPI, No abnormal walking, No abnormal hearing, No abnormal movements, No abnormal speech, No behavioral changes, No burning sensations, No confusion, No seizure-like activity, No unsteadiness, No dizziness, No localized weakness, No frequent falls, No headache(s), No lack of coordination, No loss of vision, No memory loss, No numbness, No other visual disturbances, No radiating pain, No restless legs, No sensory deficit, No fainting, No tingling, No tremor(s), No weakness, No other Exam Const General: no acute distress, well developed, well hydrated Orientation: oriented to person, oriented to place, oriented to time [facility] Head: normocephalic, atraumatic Ears: external ears normal Mouth: moist mucous membranes Eyes Sclera: sclerae normal Pupils: normal by confrontation Neck Neck: no lymphadenopathy noted Neck mass: No Thyroid: thyroid normal, symmetrical Chest Chest palpation & inspection: normal inspection of the chest Breast Palpation: No nipple discharge Resp Effort & Inspection: normal respiratory effort Auscultation: clear to auscultation bilaterally Percussion: percussion normal Cardio Rate: regular rate Rhythm: regular rhythm Heart Sounds: no murmurs GI Palpation: soft, no hepatosplenomegaly, no masses, nontender Rectal Exam: other Other: Rectal exam deferred. Extrem General: normal to inspection, no clubbing, cyanosis or edema Assessment & Plan Problems 1. Abnormal CT scan, gastrointestinal tract R93.3 Plan I have discussed the above with the patient. I have offered the patient esophagogastroduodenoscopy for evaluation. I have explained the risks/benefits of the procedure and described the procedure. I have discussed the risks with the patient, including but not limited to: infection, bleeding, perforation of the GI tract requiring emergency surgery, inability to complete the procedure, injury to any internal organs, complications of anesthesia, etc. - the patient understands and agrees to proceed. I have answered all the patient's questions to the patient's satisfaction and the patient has no further questions. The patient has been given instructions for the colon cleansing preparation. Coding Level of Care Code Off vis,est,level [address] scan, gastrointestinal tract R93.3 I have re-examined the patient. There are no clinical changes since date of exam. Procedure Criteria Procedure Type: Elective COVID Risk Discussion: The surgeon/proceduralist and patient have discussed in detail the risk of exposure to and/or potential harm posed by the COVID-19 virus with having a surgery/procedure at this time versus the risk of delaying the surgery/procedure. It is not possible to know either the risk of delaying the surgery or procedure or chance of getting an infection with perfect accuracy, but a joint decision was made between the patient and the surgeon/proceduralist to proceed at this time with the scheduled surgery/procedure as indicated on the consent form.
--- NOTE | 2019-12-14 08:49 | OP.CCLET_ITS ---
12/14/2019 Bill Crespo Re : Upper GI endoscopy procedure for Crystal Partidajúnior Penaloza This procedure was performed on Saturday, December 14, 2019. My impressions and recommendations are as follows: Impressions : - Normal esophagus. - Non-bleeding gastric ulcer with no stigmata of bleeding. Biopsied. - Non-bleeding gastric ulcer with no stigmata of bleeding. Biopsied. - Normal examined duodenum. No specimens collected. Recommendations : - Discharge patient to home. - Resume previous diet. - Use Prilosec (omeprazole) 40 mg PO daily for 6 weeks. - Use sucralfate tablets 1 gram PO BID for 6 weeks. - Continue present medications. My findings are described in the full procedure note, which is enclosed. If I can be of further assistance, please feel free to contact me at Doctor phone number(s): , Fax: [phone], Work: . Sincerely, MD Khai Jennings MD 12/14/2019 8:48:28 AM This report has been signed electronically.
--- NOTE | 2019-12-14 08:49 | OP.EGD_ITS ---
Patient Name: Crystal Hernandez Procedure Date: 12/14/2019 8:22 AM Date of : 1965 Age: 54 Procedure: Upper GI endoscopy Indications: Abnormal CT of the GI tract Providers: Khai Foreman MD Referring MD: Bill Crespo Medicines: See the Anesthesia note for documentation of the administered medications Patient Profile: This is a 54 year old female. Refer to note in patient chart for documentation of history and physical. Complications: No immediate complications. Procedure: Pre-Anesthesia Assessment: - Prior to the procedure, a History and Physical was performed, and patient medications and allergies were reviewed. The patient's tolerance of previous anesthesia was also reviewed. The risks and benefits of the procedure and the sedation options and risks were discussed with the patient. All questions were answered, and informed consent was obtained. Prior Anticoagulants: The patient has taken no previous anticoagulant or antiplatelet agents. ASA Grade Assessment: II - A patient with mild systemic disease. After reviewing the risks and benefits, the patient was deemed in satisfactory condition to undergo the procedure. After obtaining informed consent, the endoscope was passed under direct vision. Throughout the procedure, the patient's blood pressure, pulse, and oxygen saturations were monitored continuously. The gastroscope was introduced through the mouth, and advanced to the second part of duodenum. The upper GI endoscopy was accomplished without difficulty. The patient tolerated the procedure well. Scope In: 8:36:39 AM Scope Out: 8:41:12 AM Total Procedure Duration Time 0 hours 4 minutes 33 seconds Findings: The examined esophagus was normal. One non-bleeding cratered gastric ulcer with no stigmata of bleeding was found at the pylorus. The lesion was 5 mm in largest dimension. Biopsies were taken with a cold forceps for histology. Biopsies were taken with a cold forceps for histology. One non-bleeding cratered gastric ulcer with no stigmata of bleeding was found at the pylorus. The lesion was 5 mm in largest dimension. Biopsies were taken with a cold forceps for Helicobacter pylori testing. The examined duodenum was normal. No biopsies or other specimens were collected for this exam. Impression: - Normal esophagus. - Non-bleeding gastric ulcer with no stigmata of bleeding. Biopsied. - Non-bleeding gastric ulcer with no stigmata of bleeding. Biopsied. - Normal examined duodenum. No specimens collected. Recommendation: - Discharge patient to home. - Resume previous diet. - Use Prilosec (omeprazole) 40 mg PO daily for 6 weeks. - Use sucralfate tablets 1 gram PO BID for 6 weeks. - Continue present medications. Procedure Code(s): --- Professional --- 04851, Esophagogastroduodenoscopy, flexible, transoral; with biopsy, single or multiple Diagnosis Code(s): --- Professional --- K25.9, Gastric ulcer, unspecified as acute or chronic, without hemorrhage or perforation R93.3, Abnormal findings on diagnostic imaging of other parts of digestive tract CPT copyright 2017 [employer]. All rights reserved. The codes documented in this report are preliminary and upon cream ripener review may be revised to meet current compliance requirements. MD Khai Jennings MD 12/14/2019 8:48:28 AM This report has been signed electronically. Number of Addenda: 0 Note Initiated On: 12/14/2019 8:22 AM
--- NOTE | 2019-12-14 09:41 | SUR.PHASEII ---
SPOKE WITH DR HURD TO VERIFY PRESCRIPTION ORDERS PRILOSEC 20 MG PO BID X 6 WEEKS, CARAFATE BID X 6 WEEKS. NOTIFIED RETAIL PHARMACIST.
== END 2019-12-14 10:14 | disposition home or self-care (01) ==
LOC: EN 07:00 → AC 07:01
PROVIDERS: Physician Assistant; PCP Nurse Practitioner Family; Referring Provider Nurse Practitioner Family; Visit Provider Surgery
PROC: 0DJ08ZZ Inspection of Upper Intestinal Tract, Via Natural or Artificial Opening Endoscopic (ICD-10-PCS; CPT 43235; principal; 2019-12-14 08:10)
DX: K29.50 Unspecified chronic gastritis without bleeding (principal); K25.9 Gastric ulcer, unspecified as acute or chronic, without hemorrhage or perforation; F17.200 Nicotine dependence, unspecified, uncomplicated; F32.9 Major depressive disorder, single episode, unspecified; Z79.899 Other long term (current) drug therapy; Z11.59 Encounter for screening for other viral diseases
CPT/HCPCS: 43239; 87635; 88305; 88342; G2023; J7120; U0003

== ENCOUNTER 2020-04-07 05:54 | Day surgery (SDC) | payer OTHER, SELFPAY ==
--- NOTE | 2019-08-03 01:51 | HP_ITS ---
Intake Vital Signs 08/03/19 BMI 18.6 08/03/19 Height 5 ft 4 in 08/03/19 Weight: 108 lb 08/03/19 BMI 18.5 08/03/19 BP 106/73 08/03/19 Blood Pressure Location Rt brachial 08/03/19 Position Sitting 08/03/19 Respiration 18 08/03/19 Pulse 78 08/03/19 Pulse Source Monitor 08/03/19 Temp 97.8 F 08/03/19 Temp Source Oral 08/03/19 Pulse Oximetry (%) 100 08/03/19 Oxygen Delivery Method room air Intake Visit Reasons: Discuss Upper Scope Chief Complaint: Schedule EGD Patternator Required: No Is patient in pain?: No Allergies No Known Allergies Allergy (Verified 08/03/19 13:38) Medications NK 08/03/19 [History Confirmed 08/03/19] PFSH Medical History Acute appendicitis (Acute) Surgical History History of laparoscopic appendectomy (Acute ~05/18/19) Family History Mother Arthritis Diabetes Hypertension Father Heart disease High cholesterol Sister lupus/autoimmune disease Social History (Updated 08/03/19 @ 13:51 by Khai Foreman MD) Smoking Status: Current every day smoker alcohol intake: never substance use type: does not use HPI HPI HPI: JAN KOEHLER is a 53 F who presents to the office today for HPI HPI Surgical H&P: Yes HPI: JAN KOEHLER is a 53 F who presents to the office today for Evaluation for endoscopy. I performed a laparoscopic appendectomy on her on 05/18/2019. CAT scan noticed that she had some thickening of the duodenum patient is noted to have some occasional reflux disease notes that her job is stressful. Pathology report at the time of her appendicitis was just a normal acute appendicitis. ROS General General: Yes weight change and appetite; no fatigue, colon cancer, breast cancer or weakness HEENT HEENT: No difficulty swallowing, eye injury, eye surgery, swollen glands or hoarseness Endo Endocrine: No thyroid disease, diabetes mellitus, thyroid cancer, Hair loss, heat intolerance or cold intolerance Skin Skin: No rash or changing moles Breast Breast: No left breast lump, right breast lump, nipple discharge, breast pain, abnormal mammogram, abnormal US or breast enlargement Musc Musculoskeletal: Yes back problems and arthritis; no rheumatoid arthritis, gout or joint pain Cardio Cardiovascular: No murmur, pacemaker, heart disease, atrial fibrillation, high blood pressure, heart attack, heart stent, palpitations, shortness of breat with exertion or chest pain Psych Psychiatric: No depression, anxiety or hearing voices Resp Respiratory: No shortness of breath, No sleep apnea, No cough, No COPD, No asthma, No emphysema, No wheezing Gastro Gastrointestinal: No abdominal pain, No nausea or vomiting, No diarrhea, No constipation, No blood in stool, No acid reflux, Yes hemorrhoids, No ulcers, No gallbladder problem, No black,tarry stools Navin Hematologic: No blood thinners, No blood disorders, No bleeding, Yes anemia, No blood clots Neuro Neurologic: No system reviewed and no additional complaints, except as docu, No as per HPI, No abnormal walking, No abnormal hearing, No abnormal movements, No abnormal speech, No behavioral changes, No burning sensations, No confusion, No seizure-like activity, No unsteadiness, No dizziness, No localized weakness, No frequent falls, No headache(s), No lack of coordination, No loss of vision, No memory loss, No numbness, No other visual disturbances, No radiating pain, No restless legs, No sensory deficit, No fainting, No tingling, No tremor(s), No weakness, No other Exam Const General: no acute distress, well developed, well hydrated Orientation: oriented to person, oriented to place, oriented to time [facility] Head: normocephalic, atraumatic Ears: external ears normal Mouth: moist mucous membranes Eyes Sclera: sclerae normal Pupils: normal by confrontation Neck Neck: no lymphadenopathy noted Neck mass: No Thyroid: thyroid normal, symmetrical Chest Chest palpation & inspection: normal inspection of the chest Breast Palpation: No nipple discharge Resp Effort & Inspection: normal respiratory effort Auscultation: clear to auscultation bilaterally Percussion: percussion normal Cardio Rate: regular rate Rhythm: regular rhythm Heart Sounds: no murmurs GI Palpation: soft, no hepatosplenomegaly, no masses, nontender Rectal Exam: other Other: Rectal exam deferred. Extrem General: normal to inspection, no clubbing, cyanosis or edema Assessment & Plan Problems 1. Abnormal CT scan, gastrointestinal tract R93.3 Plan I have discussed the above with the patient. I have offered the patient esophagogastroduodenoscopy for evaluation. I have explained the risks/benefits of the procedure and described the procedure. I have discussed the risks with the patient, including but not limited to: infection, bleeding, perforation of the GI tract requiring emergency surgery, inability to complete the procedure, injury to any internal organs, complications of anesthesia, etc. - the patient understands and agrees to proceed. I have answered all the patient's questions to the patient's satisfaction and the patient has no further questions. The patient has been given instructions for the colon cleansing preparation. Coding Level of Care Code Off vis,est,level [address] scan, gastrointestinal tract R93.3 08/03/19 1351 <Electronically signed by Khai poole MD> Date _ Khai Foreman MD
[2019-08-03 13:40] VITALS: BMI 18.6
[2020-02-01 09:09] VITALS: BMI 16.9
[2020-04-07] VITALS (7 sets, daily range): BP systolic 100–132; BP diastolic 59–71; PULSE 79–85; RESP 16–18; TEMP 36.7–37; O2SAT 95–99; BMI 16.9
[2020-04-07] MEDS: Lactated Ringers 1,000 ML 100 ML IV (06:22)
--- NOTE | 2020-04-07 07:00 | HP.PCM_ITS ---
History and Physical Date of Admission: 04/07/20 [facility] [address] [place] [address] MR#: [id number] Acct: [id number] Name: JAN KOEHLER Rep #: [id number] : 1965 Provider: Dr. Juan Miguel Foreman MD Age/Sex: 54/F Location: [facility] [address] Status: Signed Intake Vital Signs 02/01/20 BMI 16.9 02/01/20 Height 5 ft 5 in 02/01/20 Weight: 100 lb 02/01/20 BMI 16.6 02/01/20 BP 132/77 H 02/01/20 Blood Pressure Location Rt brachial 02/01/20 Position Sitting 02/01/20 Respiration 18 02/01/20 Pulse 74 02/01/20 Pulse Source Monitor 02/01/20 Temp 97.8 F 02/01/20 Temp Source Temporal 02/01/20 Pulse Oximetry (%) 98 02/01/20 Oxygen Delivery Method room air Intake Visit Reasons: F/U Discuss repeat EGD Chief Complaint: Repeat EGD [employer] Required: No Is patient in pain?: No Allergies No Known Allergies Allergy (Verified 02/01/20 08:57) Medications Citalopram [Celexa] 20 mg PO DAILY PRN 12/08/19 [History Confirmed 02/01/20] Ferrous Sulfate [Iron] 325 mg PO PRN PRN 12/08/19 [History Confirmed 02/01/20] Multivitamin 1 ea PO DAILY 12/08/19 [History Confirmed 02/01/20] Vitamin B Complex 1 ea PO DAILY 12/08/19 [History Confirmed 02/01/20] Sucralfate [Carafate] 1 gm PO BID #60 tab 12/14/19 [Rx Confirmed 02/01/20] omeprazole 20 mg capsule,delayed release 20 mg PO BID cap 12/23/19 [History Confirmed 02/01/20] acetaminophen 650 mg tablet,extended release 650 mg PO Q12H 02/01/20 [History Confirmed 02/01/20] PFSH Medical History Acute appendicitis (Acute) Surgical History History of laparoscopic appendectomy (Acute ~05/18/19) Family History Mother Arthritis Diabetes Hypertension Father Heart disease High cholesterol Sister lupus/autoimmune disease Social History (Updated 02/01/20 @ 09:[address] Khai Foreman MD) Smoking Status: Current every day smoker alcohol intake: never substance use type: does not use HPI HPI Surgical H&P: Yes HPI: JAN KOEHLER, is a 54 F who presents to the office today for Repeat EGD. Patient had an EGD completed at [facility] on 12/14/2019. Patient was noted to have a large cratered gastric ulcer with no stigmata of bleeding. Biopsies of this were negative for H. pylori. She has been on her medication appropriately she is not complaining of any abdominal pain she has not noticed any black or tarry stools. ROS General General: Yes weight change and appetite; no fatigue, colon cancer, breast cancer or weakness HEENT HEENT: No difficulty swallowing, eye injury, eye surgery, swollen glands or hoarseness Endo Endocrine: No thyroid disease, diabetes mellitus, thyroid cancer, Hair loss, heat intolerance or cold intolerance Skin Skin: No rash or changing moles Breast Breast: No left breast lump, right breast lump, nipple discharge, breast pain, abnormal mammogram, abnormal US or breast enlargement Musc Musculoskeletal: Yes back problems and arthritis; no rheumatoid arthritis, gout or joint pain Cardio Cardiovascular: No murmur, pacemaker, heart disease, atrial fibrillation, high blood pressure, heart attack, heart stent, palpitations, shortness of breat with exertion or chest pain Psych Psychiatric: No depression, anxiety or hearing voices Resp Respiratory: No shortness of breath, No sleep apnea, No cough, No COPD, No asthma, No emphysema, No wheezing Gastro Gastrointestinal: No abdominal pain, No nausea or vomiting, No diarrhea, No constipation, No blood in stool, No acid reflux, Yes hemorrhoids, No ulcers, No gallbladder problem, No black,tarry stools Navin Hematologic: No blood thinners, No blood disorders, No bleeding, Yes anemia, No blood clots Neuro Neurologic: No weakness Exam Const General: no acute distress, well developed, well hydrated Orientation: oriented to person, oriented to place, oriented to time [facility] Head: normocephalic, atraumatic Ears: external ears normal Mouth: moist mucous membranes Eyes Sclera: sclerae normal Pupils: normal by confrontation Neck Neck: no lymphadenopathy noted Neck mass: No Thyroid: thyroid normal, symmetrical Chest Chest palpation & inspection: normal inspection of the chest Breast Palpation: No nipple discharge Resp Effort & Inspection: normal respiratory effort Auscultation: clear to auscultation bilaterally Percussion: percussion normal Cardio Rate: regular rate Rhythm: regular rhythm Heart Sounds: no murmurs GI Palpation: soft, no hepatosplenomegaly, no masses, nontender Rectal Exam: other Other: Rectal exam deferred. Extrem General: normal to inspection, no clubbing, cyanosis or edema Assessment & Plan Problems 1. Chronic prepyloric ulcer K25.7 Plan I have discussed the above with the patient. I have offered the patient esophagogastroduodenoscopy for evaluation. I have explained the risks/benefits of the procedure and described the pro cedure. I have discussed the risks with the patient, including but not limited to: infection, bleeding, perforation of the GI tract requiring emergency surgery, inability to complete the procedure, injury to any internal organs, complications of anesthesia, etc. - the patient understands and agrees to proceed. I have answered all the patient's questions to the patient's satisfaction and the patient has no further questions. The patient has been given instructions for the colon cleansing preparation. Coding Level of Care Code Off vis,est,level 3 Diagnoses Chronic prepyloric ulcer K25.7 ??Gastric ulcer chronicity: chronic COVID (Procedure Consent) Procedure Criteria Procedure Criteria: Yes Elective The surgeon/proceduralist and patient have discussed in detail the risk of exposure to and/or potential harm posed by the COVID-19 virus with having a surgery/procedure at this time versus the risk of? delaying the surgery/procedure. It is not possible to know either the risk of delaying the surgery or procedure or chance of getting an infection with perfect accuracy, but a joint decision was made between the patient and the surgeon/proceduralist ?to proceed at this time with the scheduled surgery/procedure as indicated on the consent form. <Electronically signed by Khai Foreman MD> Date _ Kahi Foreman MD \ I have re-examined the patient. There are no clinical changes since date of exam.
--- NOTE | 2020-04-07 07:00 | EGD_PTH ---
PATIENT: AJN FRY LOC: EN U#:[id number] AGE/SX: 54/F ROOM: RE04/07/[address]: Dr. Khai Foreman MD : 1965 BED: DIS: 04/07/2020 SPEC #: [id number] RECD: 04/07/20 08:33 STATUS: FADY JEY #: [id number] DHEERAJ: 04/07/20 07:[address]: Khai Foreman DEPT: SURGICAL PATHOLOGY RECD BY: Rin Higuera ENTERED: 04/07/20 09:58 SP TYPE: EGD BIOPSY OT DR: Shea Penaloza, JERRYC Tissues: A - Gastric mucous membrane B - Gastric mucous membrane Procedures: Surgery Specimen Level IV HEADER OPERATION: EGD ([facility]) PRE-OP DIAGNOSIS: Chronic prepyloric ulcer TISSUE SUBMITTED: A - Antrum biopsy for histo and H. pylori, B - Gastric ulcer biopsy MICROSCOPIC DIAGNOSIS A. Antrum biopsy: Mild gastritis. See microscopic description and comment. B. Gastric ulcer, biopsy: Mild gastritis. See microscopic description. SJ:nir 04/08/20 COMMENT A. The results of immunohistochemistry for Helicobacter pylori will be reported separately ([id number]). MICROSCOPIC DESCRIPTION Slides are reviewed. A. The specimen shows fragments of gastric mucosa with chronic inflammatory cell infiltrates in the lamina propria consisting of lymphocytes and plasma cells, consistent with mild chronic gastritis. B. The specimen shows fragments of gastric mucosa with chronic inflammatory cell infiltrates in the lamina propria consisting of lymphocytes and plasma cells, consistent with mild chronic gastritis. GROSS DESCRIPTION A - Received in fixative is one container labeled with the patient's name and designated antrum biopsy. The specimen consists of one irregular fragment of light roberts soft tissue that measures 0.4 x 0.4 x 0.1 cm. The specimen is totally submitted in one cassette. B - Received in fixative is one container labeled with the patient's name and designated gastric ulcer biopsy. The specimen consists of multiple irregular fragments of light roberts soft tissue that in aggregate measure 0.8 x 0.2 x 0.1 cm. The specimen is totally submitted in one cassette. / ANNE:nir 04/07/20 TC:3 CPT: 30872 x2
--- NOTE | 2020-04-07 07:00 | IMM_PTH ---
PATIENT: JAN FRY LOC: EN U#:[id number] AGE/SX: 54/F ROOM: RE04/07/[address]: Dr. Khai Foreman MD : 1965 BED: DIS: 04/07/2020 SPEC #: [id number] RECD: 04/07/20 11:59 STATUS: FADY REQ #: [id number] DHEERAJ: 04/07/20 07:[address]: Khai Foreman DEPT: IMMUNOHISTOCHEMISTRY RECD BY: Nelia Galan ENTERED: 04/07/20 11:59 SP TYPE: IMMUNO OTHR DR: Shea Penaloza, MID LEVEL CLINICIAN-C Tissues: A - Stomach, NOS Procedures: H Pylori (initial) PHYSICIAN & INSTITUTION [place] [address] SPECIMEN INFORMATION: Tissue Source: A - Antrum biopsy Clinical Info: Chronic prepyloric ulcer Specimen Number: [id number] CPT code: 29621 METHODOLOGY: Deparaffinized sections of prefer/formalin-fixed tissue or PAP/DQ stained slides are incubated with monoclonal/polyclonal antibodies/oligonucleotide probes. Localization is made via biotin free immunoperoxidase method. Appropriate controls are performed and reacted as expected. Results on target cell population are indicated in the following table: RESULTS: ANTIBODY / CLONE RESULT Block A H Pylori (polyclonal) negative These tests were developed and their performance characteristics determined by [facility]. They may not have been cleared or approved by the U.S. Food and Drug Administration. The FDA has determined that such clearance or approval is not necessary. INTERPRETATION: A. Antrum biopsy: Negative for Helicobacter pylori organisms. SJ:nir 04/08/20
--- NOTE | 2020-04-07 07:23 | OP.EGD_ITS ---
Patient Name: Crystal Hernandez Procedure Date: 04/07/2020 6:40 AM Date of : 1965 Age: 54 Procedure: Upper GI endoscopy Indications: Follow-up of chronic gastric ulcer Providers: Khai Foreman MD Referring MD: Bill Crespo Medicines: See the Anesthesia note for documentation of the administered medications Patient Profile: This is a 54 year old female. Refer to note in patient chart for documentation of history and physical. Complications: No immediate complications. Procedure: Pre-Anesthesia Assessment: - Prior to the procedure, a History and Physical was performed, and patient medications and allergies were reviewed. The patient's tolerance of previous anesthesia was also reviewed. The risks and benefits of the procedure and the sedation options and risks were discussed with the patient. All questions were answered, and informed consent was obtained. Prior Anticoagulants: The patient has taken no previous anticoagulant or antiplatelet agents. ASA Grade Assessment: II - A patient with mild systemic disease. After reviewing the risks and benefits, the patient was deemed in satisfactory condition to undergo the procedure. After obtaining informed consent, the endoscope was passed under direct vision. Throughout the procedure, the patient's blood pressure, pulse, and oxygen saturations were monitored continuously. The Endoscope was introduced through the mouth, and advanced to the second part of duodenum. The upper GI endoscopy was accomplished without difficulty. The patient tolerated the procedure well. Scope In: 7:09:37 AM Scope Out: 7:15:40 AM Total Procedure Duration Time 0 hours 6 minutes 3 seconds Findings: The examined esophagus was normal. No biopsies or other specimens were collected for this exam. One non-bleeding superficial gastric ulcer with no stigmata of bleeding was found in the prepyloric region of the stomach. The lesion was 1 mm in largest dimension. Biopsies were taken with a cold forceps for histology. Diffuse mildly erythematous mucosa without bleeding was found in the prepyloric region of the stomach. Biopsies were taken with a cold forceps for Helicobacter pylori testing. Patchy mildly erythematous mucosa without active bleeding and with no stigmata of bleeding was found in the duodenal bulb. No biopsies or other specimens were collected for this exam. Impression: - Normal esophagus. No specimens collected. - Non-bleeding gastric ulcer with no stigmata of bleeding. Biopsied. - Erythematous mucosa in the prepyloric region of the stomach. Biopsied. - Erythematous duodenopathy. No specimens collected. Recommendation: - Discharge patient to home. - Resume previous diet. - Continue present medications. - Await pathology results. - Repeat upper endoscopy PRN for surveillance. - Return to my office in 1 week. Procedure Code(s): --- Professional --- 13980, Esophagogastroduodenoscopy, flexible, transoral; with biopsy, single or multiple Diagnosis Code(s): --- Professional --- K25.9, Gastric ulcer, unspecified as acute or chronic, without hemorrhage or perforation K31.89, Other diseases of stomach and duodenum K25.7, Chronic gastric ulcer without hemorrhage or perforation CPT copyright 2017 [employer]. All rights reserved. The codes documented in this report are preliminary and upon instrument installer review may be revised to meet current compliance requirements. MD Khai Jennings MD 04/07/2020 7:22:46 AM This report has been signed electronically. Number of Addenda: 0 Note Initiated On: 04/07/2020 6:40 AM
--- NOTE | 2020-04-07 07:23 | OP.CCLET_ITS ---
04/07/2020 Bill Crespo Re : Upper GI endoscopy procedure for Crystal Hernandez Dear [place] This procedure was performed on March. My impressions and recommendations are as follows: Impressions : - Normal esophagus. No specimens collected. - Non-bleeding gastric ulcer with no stigmata of bleeding. Biopsied. - Erythematous mucosa in the prepyloric region of the stomach. Biopsied. - Erythematous duodenopathy. No specimens collected. Recommendations : - Discharge patient to home. - Resume previous diet. - Continue present medications. - Await pathology results. - Repeat upper endoscopy PRN for surveillance. - Return to my office in 1 week. My findings are described in the full procedure note, which is enclosed. If I can be of further assistance, please feel free to contact me at Doctor phone number(s): , Fax: [phone], Work: . Sincerely, MD Khai Jennings MD 04/07/2020 7:22:46 AM This report has been signed electronically.
== END 2020-04-07 07:53 | disposition home or self-care (01) ==
LOC: EN 05:54 → AC 05:54
PROVIDERS: Anesthesiology; PCP Nurse Practitioner Family; Referring Provider Nurse Practitioner Family; Visit Provider Surgery
PROC: 0DJ08ZZ Inspection of Upper Intestinal Tract, Via Natural or Artificial Opening Endoscopic (ICD-10-PCS; CPT 43235; principal; 2020-04-07 06:55)
DX: K29.70 Gastritis, unspecified, without bleeding (principal); K25.7 Chronic gastric ulcer without hemorrhage or perforation; F17.200 Nicotine dependence, unspecified, uncomplicated; F32.9 Major depressive disorder, single episode, unspecified; Z79.899 Other long term (current) drug therapy; Z20.828 Contact with and (suspected) exposure to other viral communicable diseases
CPT/HCPCS: 43239; 87635; 88305; 88342; C9803; J7120; U0003

== ENCOUNTER → 2021-05-19 | Outpatient (CLI) | payer OTHER, SELFPAY ==
[2021-05-24 15:14] LABS: H. PYLORI STOOL AG Negative (Negative)
== END | disposition home or self-care (01) ==
LOC: LABSPEC 11:19
PROVIDERS: PCP Nurse Practitioner Family; Referring Provider Internal Medicine Gastroenterology; Visit Provider Internal Medicine Gastroenterology
DX: K27.9 Peptic ulcer, site unspecified, unspecified as acute or chronic, without hemorrhage or perforation (principal)

== ENCOUNTER → 2021-05-30 11:54 | Outpatient (CLI) | payer OTHER, SELFPAY | PROVIDERS: PCP Nurse Practitioner Family; Referring Provider Internal Medicine Gastroenterology; Visit Provider Internal Medicine Gastroenterology | DX: Z11.59 Encounter for screening for other viral diseases (principal) ==

== ENCOUNTER → 2021-05-30 12:32 | Outpatient (CLI) | payer OTHER, SELFPAY | PROVIDERS: PCP Nurse Practitioner Family; Referring Provider Internal Medicine Gastroenterology; Visit Provider Internal Medicine Gastroenterology | DX: Z11.59 Encounter for screening for other viral diseases (principal) | CPT/HCPCS: 87635; C9803; U0005; U0003 ==